=== PATIENT | female | born 1935 | race Caucasian/White ===

== ENCOUNTER 2019-03-16 19:31 | Emergency (ER) | payer OTHER ==
[~2019-03-16] VITALS: Ht 152.4 cm; Wt 96.2 kg
[~2019-03-16 19:31] MED LIST: ALBUTEROL2.5 MG/0.5 INH; ALLOPURINOL 10100 M1 PO; ANTIVERT25 MG PO; ASPIR 8181 M1 PO; AZITHROMYCIN 2250 MG PO; BACTROBAN22 GM TP; BISACODYL SUPP10 MG RECTAL; CEFTIN 250 MG250 MG PO; CEFUROXIME500 MG PO; CLARITIN10 MG PO; CLEOCIN HCL150 MG PO; COLACE 100 MG100 MG PO; COLESTIPOL HCL1 G1 PO; DEEP SEA NASAL44 M1 NS; DEMADEX20 MG PO; FLONASE 0.05%50 MCG NASAL; GABAPENTIN 100100 MG PO; HYDROCODONE-AP1 EAC6 PO; LANTUS SUBQ; LEVOTHYROXIN0.075 MG PO; LEXAPRO 10 MG T10 M1 PO; LIPITOR10 MG PO; LISINOPRIL10 MG PO; LITTLE REMEDIES15 ML NASAL; MAG-AL LIQUID30 ML PO; MAG-OXIDE400 MG PO; MILK OF MA2400 MG/10 PO; MIRALAX17 GM PO; MUCINEX TA600 MG/TA2 PO; NEURONTIN 300300 M1 PO; NITROGLYCERIN0.4 MG SUBLING; NOVOLOG100 UNIT/1 SUBQ; NYAMYC15 GM TOP; ONDANSETRON HCL4 M2 PO; OXYCONTIN20 M1 PO; OYST-CAL-500500 MG PO; PILOCARPINE HCL5 M1 PO; POTASSIUM20 PO; PREPARATION H O30 GM RECTAL; PRILOSEC40 MG PO; PROBIOTIC1 EAC1 PO; REGLAN 5 MG TAB5 MG PO; REQUIP2 MG PO; REQUIP3 MG PO; RESTASIS1 EACH OPHTHALMIC; SENNA8.6 M1 PO; TOPAMAX 25 MG T25 MG PO; TYLENOL325 MG PO; VITAMIN B-12500 MCG PO; VITAMIN D1000 UNI1 PO; ZPAK PO
[2019-03-16 20:26] LABS: ABSOLUTE NEUTROPHILS 5.7 thou/uL (1.4-8.2); BASOPHILS 0.9 % (0.0-2.0); EOSINOPHILS 3.1 % (0.0-3.0); HEMATOCRIT 40.8 % (37.0-47.0); HEMOGLOBIN 13.6 gm/dL (12.0-15.0); MCH 31.8 pg (26.0-34.0); MCHC 33.2 g/dL (28.0-37.0); MCV 95.8 fL (80.0-100.0); MONOCYTES 10.2 % (1.0-8.0); PLATELET COUNT 114 thou/uL (150-400); POLYS 69.8 % (36.0-66.0); RBC 4.26 mil/uL (4.20-5.00); RDW 14.2 % (10.5-14.5); WBC 8.2 thou/uL (4.0-11.0)
[2019-03-16 20:36] LABS: ANION GAP 7 mmol/L (7-16); BUN 16 mg/dL (7-18); CALCIUM 10.2 mg/dL (8.5-10.1); CHLORIDE 98 mmol/L (98-107); CO2 30 mmol/L (21-32); CREATININE 1.4 mg/dL (0.6-1.0); GLUCOSE 207 mg/dL (74-106); SODIUM 135 mmol/L (136-145)
[2019-03-16 20:44] LABS: TROPONIN-I <0.06 ng/mL (<0.06)
[2019-03-17 01:10] VITALS: BP 179/49
--- NOTE | 2019-03-17 10:51 | EKG ---
[place] [address] [facility] [place] [address] ELECTROCARDIOGRAM REPORT Name: PAN RICHARDSON Room #: DEP REBECCA Hawthorne#: [id number] Admission: 03/16/19 Attend Phys: Discharge: 03/17/19 Date of : 31 Report #: [id number] THIS REPORT FOR: //name// [facility] ED Test Date: 2019-03-16 Test Time: 19:51:12 Pat Name: PAN RICHARDSON Department: Room: Gender: F Network Liaison: [place] : 1935 Requested By: Miah Day Order Number: [id number] MD: Alexy Vyas Measurements Intervals [place] Rate: 72 P: PA: QRS: -26 QRSD: 92 T: -17 QT: 403 QTc: 442 Interpretive Statements Atrial fibrillation Anterolateral infarct, old Inferior infarct, age indeterminate Compared to ECG 04/01/2018 17:31:37 Criteria for anterolateral infarct are now present Electronically Signed On 03-17-2019 10:51:09 CDT by Alexy Vyas [email or web address] <ELECTRONICALLY SIGNED> By: Alexy Vyas MD, [facility] 03/17/19 1051 50 50 Alexy Vyas MD, FACC /EPI
== END 2019-03-17 01:10 | disposition home or self-care (01) ==
LOC: ER 19:31
PROVIDERS: Emergency Medicine
DX: M25.512 Pain in left shoulder (principal); F03.90 Unspecified dementia, unspecified severity, without behavioral disturbance, psychotic disturbance, mood disturbance, and anxiety; I10 Essential (primary) hypertension; E66.9 Obesity, unspecified; E11.9 Type 2 diabetes mellitus without complications; G89.4 Chronic pain syndrome; G25.81 Restless legs syndrome; E78.00 Pure hypercholesterolemia, unspecified; Z90.49 Acquired absence of other specified parts of digestive tract; Z88.5 Allergy status to narcotic agent; Z88.0 Allergy status to penicillin; Z68.41 Body mass index [BMI] 40.0-44.9, adult; Z79.4 Long term (current) use of insulin; Z86.73 Personal history of transient ischemic attack (TIA), and cerebral infarction without residual deficits